=== PATIENT | female | born 1970 | race Caucasian/White ===

== ENCOUNTER → 2016-05-10 | Outpatient (CLI) | payer BC ==
[~2016-05-10] MED LIST: ACYC800T PO; ALPR1TAB5 PO; BENZ100C97 PO; BUPR300T59 PO; IBUP-1724 PO; IBUP-1842 PO; LACT1TAB22 PEG; LEVO1TBD3 PO; LEVO25TA51 PO; LISD50CA4 PO; LORA10TA62 PO; PANT40TA27 PO; PROM5SYR PO; RANI150T12 PO; RIZA5TAB15 PO; SIMV40TA82 PO; TRIA10.82 EA NOSTRIL; VORT10TA PO; [UNRECOGNIZED DRUG - CODE] PO
--- NOTE | 2016-05-10 11:27 | DI ---
Indication: ITS.REASON: M54.2 bilateral shoulder pain radiating into the arms and hands. PROCEDURE: MRI CERVICAL SPINE W/O CONTRAS: Encounter: Initial Comparison: August 03, 2009 Technique: Multiplanar multisequence MR imaging of the cervical spine was performed without contrast. Findings: Alignment of the cervical spine is stable. No acute fracture identified. Bone marrow signal intensity is within normal limits. There is severe compression of the spinal cord by a large disk protrusion at the C4-C5 level which is worsened since the comparison study. There is thinning of the cord and increased signal intensity consistent with myelomalacia. No additional cord lesions seen. The paraspinal soft tissues are unremarkable. Segmental analysis: C2-C3: Normal C3-C4: Normal C4-C5: Very large central disk protrusion measuring 10 mm transversely and 8 mm anteroposteriorly. This causes severe central canal stenosis and compresses the cord significantly with thinning and abnormal signal. This has enlarged with worsening cord impingement since the prior study. No significant neural foraminal stenosis however. C5-C6: Moderate sized left central disk protrusion impressing upon the left aspect of the cord with moderate central canal stenosis. This is also worsened from the prior study. Degenerative uncovertebral and facet changes on the left with severe neural foraminal stenosis and impingement on the exiting right C6 nerve root. Mild degenerative facet disease on the left without significant neural foraminal stenosis. C6-C7: Small central disk protrusion without central canal stenosis. This extends to the left neural foramen causing moderate neural foraminal narrowing. No significant right foraminal stenosis. C7-T1: Normal Impression: Worsening large disk protrusion at C4-C5 with severe central canal stenosis and chronic compression of the spinal cord. .
== END ==
LOC: IMA 10:06
PROVIDERS: ATTEND Orthopaedic Surgery Sports Medicine
DX: M48.02 Spinal stenosis, cervical region (principal); M50.121 Cervical disc disorder at C4-C5 level with radiculopathy

== ENCOUNTER → 2016-07-03 | Outpatient (CLI) | payer BC ==
[~2016-07-03] MED LIST changes: +CODE118S2 PO; +DOXY100T2 PO; -IBUP-1842 PO; -LEVO1TBD3 PO; +LEVO5TAB29; +PRED50TA PO; -PROM5SYR PO; -TRIA10.82 EA NOSTRIL; -VORT10TA PO
[2016-07-03 18:19] LABS: BASOPHILS % (AUTO) 0.1 % (0-2); HCT - HEMATOCRIT 40.1 % (36-46); HGB - HEMOGLOBIN 13.4 GM/DL (12-16); IMMATURE GRANULOCYTE # (AUTO) 0.07 T/MM3 (0.00-0.03); IMMATURE GRANULOCYTE % (AUTO) 0.5 % (0.0-0.5); LYMPHOCYTES # (AUTO) 2.1 T/MM3 (1-4.8); LYMPHOCYTES % (AUTO) 14.6 % (23-45); MEAN CORPUSCULAR HGB CONC(MCHC 33.4 GM/DL (31-37); MEAN CORPUSCULAR VOLUME 89.9 UM3 (80-100); MEAN PLATELET VOLUME 9.8 UM3 (9.4-12.4); MONOCYTES # (AUTO) 0.8 T/MM3 (0-0.8); MONOCYTES % (AUTO) 5.6 % (0-9.0); NEUTROPHILS #(AUTO)-ABSOLUTE 11.3 T/MM3 (1.8-7.7); NEUTROPHILS % (AUTO) 79.2 % (33-66); RED BLOOD COUNT 4.46 M/MM3 (4.00-5.20); WBC - WHITE BLOOD COUNT 14.3 T/MM3 (4.5-11.0)
[2016-07-03 18:23] LABS: BLOOD, URINE TRACE-INTACT (NEGATIVE); COLOR,URINE YELLOW (YELLOW); LEUKOCYTE ESTERASE ,URINE NEGATIVE (NEGATIVE); NITRITE,URINE NEGATIVE (NEGATIVE); UROBILINOGEN,URINE 0.2 EU/DL (NORMAL)
[2016-07-03 18:26] LABS: ALBUMIN 4.8 G/DL (3.5-5.0); ALBUMIN/GLOBULIN RATIO 1.8 RATIO (1.1-2.2); ALKALINE PHOSPHATASE 81 U/L (38-126); ALT (SGPT) 40 U/L (9-52); ANION GAP 14 MEQ/L (5-15); AST (SGOT) 23 U/L (14-36); BUN/CREATININE RATIO 27 RATIO (6-26); CALCIUM 9.5 MG/DL (8.4-10.2); CHLORIDE 106 MEQ/L (98-107); CO2 - CARBON DIOXIDE 24 MEQ/L (22-30); CREATININE 0.7 MG/DL (0.7-1.2); GLOMERULAR FILTRATION RATE 90; GLUCOSE 131 MG/DL (65-110); POTASSIUM 4.7 MEQ/L (3.6-5); SODIUM 144 MEQ/L (134-144); TOTAL PROTEIN 7.4 G/DL (6.3-8.2)
--- NOTE | 2016-07-04 09:24 | DI ---
INDICATION: ITS.REASON: 201.89 PROCEDURE: CHEST 2-VIEWS UPRIGHT (PA \T\ LAT) Encounter: Initial COMPARISON: July 29, 2015 FINDINGS: The lungs are clear without evidence of focal abnormal airspace opacity. There is no pleural effusion or pneumothorax. The heart size, mediastinal contours and pulmonary vascularity are within normal limits. IMPRESSION: No acute cardiopulmonary disease. .
== END ==
LOC: IMA 17:53
PROVIDERS: ATTEND Internal Medicine
DX: Z01.812 Encounter for preprocedural laboratory examination (principal); Z01.810 Encounter for preprocedural cardiovascular examination; Z01.811 Encounter for preprocedural respiratory examination
CPT/HCPCS: 36415; 80048; 80053; 81003; 85025